=== PATIENT | male | born 1995 | race Two or more races ===

== ENCOUNTER 2021-11-17 22:25 | Emergency (ER) | payer SELFPAY ==
[~2021-11-17] VITALS: Ht 172.7 cm; Wt 64.0 kg
[2021-11-17] MEDS ORDERED: TRAZ-118 PO (22:32)
[2021-11-17] MEDS ORDERED: DIAZ5TAB PO ×2 (22:32)
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
[2021-11-17] MEDS ORDERED: ONDANSETRON PF 4 MG/2 ML VIAL. IVP ONE (23:00)
[2021-11-17 23:07] LABS: BASO # 0.1 x10^3/uL (0.0-0.2); BASO % 1 % (0-3); EOS # 0.1 x10^3/uL (0.0-0.7); EOS % 1 % (0-3); HEMOGLOBIN 12.5 g/dL (13.0-17.5); LYMPH # 3.4 x10^3/uL (1.0-4.8); LYMPH % 53 % (24-48); MEAN CORPUSCULAR HEMOGLOBIN 30 pg (25-35); MEAN CORPUSCULAR HGB CONC 33 g/dL (31-37); MEAN CORPUSCULAR VOLUME 90 fL (79-100); MONO # 0.4 x10^3/uL (0.0-1.1); MONO % 6 % (0-9); NEUT # 2.5 x10^3/uL (1.8-7.7); NEUT % 38 % (31-73); PLATELET COUNT 180 x10^3/uL (140-400); RED BLOOD COUNT 4.22 x10^6/uL (4.30-5.70); RED CELL DISTRIBUTION WIDTH 14.1 % (11.5-14.5); WHITE BLOOD COUNT 6.4 x10^3/uL (4.0-11.0)
[2021-11-17 23:18] LABS: CALCIUM 8.5 mg/dL (8.5-10.1); CREATININE 0.8 mg/dL (0.7-1.3); GFR 116.9; POTASSIUM 3.9 mmol/L (3.5-5.1)
[2021-11-17 23:20] LABS: BILIRUBIN,URINE NEGATIVE (NEG); CLARITY,URINE CLEAR; COLOR,URINE YELLOW; NITRITE,URINE NEGATIVE (NEG); PH,URINE 6.5 (<5.0-8.0); PROTEIN,URINE 30 mg/dL (NEG-TRACE)
[2021-11-17 23:23] LABS: ALBUMIN 3.7 g/dL (3.4-5.0); ALBUMIN/GLOBULIN RATIO 0.9 (1.0-1.7); TOTAL BILIRUBIN 0.4 mg/dL (0.2-1.0); TOTAL PROTEIN 7.9 g/dL (6.4-8.2)
[2021-11-17 23:24] LABS: ACETAMIN < 2.0 mcg/ml (10-30); ETHANOL 253 mg/dL (0-10); SALIC 0.5 mg/dL (2.8-20.0)
[2021-11-17 23:27] LABS: BARBITURATES NEG (NEG); BENZODIAZEPINES POS (NEG); CANNABINOIDS NEG (NEG); COCAINE NEG (NEG); METHADONE NEG (NEG); OPIATES NEG (NEG); PHENCYCLIDINE NEG (NEG)
[2021-11-17 23:28] LABS: AMPHETAMINE/METHAMPHETAMINE NEG (NEG)
[2021-11-17] MEDS ORDERED: MULTIVIT INFUSN,ADULT 4,VIT K 10 ML, THIAMINE INJ 100 MG, FOLIC ACID INJ 1 MG in IV NOR... IV ONE (23:30)
[2021-11-17 23:34] LABS: BACTERIA,URINE 0 /HPF (0-FEW)
[2021-11-17] MEDS ORDERED: ONDA4TAB12 PO (23:43)
[2021-11-17 23:45] VITALS: BP 138/84
== END 2021-11-18 00:09 | disposition home or self-care (01) ==
LOC: ER 22:25
DX: F10.129 Alcohol abuse with intoxication, unspecified (principal); Y90.8 Blood alcohol level of 240 mg/100 ml or more; R25.1 Tremor, unspecified; R11.2 Nausea with vomiting, unspecified; Z88.8 Allergy status to other drugs, medicaments and biological substances
CPT/HCPCS: 36415; 80053; 80307; 80329; 81001; 83690; 85025; 96365; 96375; 99284; G0480; J2060; J2405; J3411; J3490; J7030